=== PATIENT | female | born 1965 | race Caucasian/White ===

== ENCOUNTER → 2018-06-22 | Outpatient (CLI) | payer MEDICARE | LOC: SLEEP 19:53 | PROVIDERS: ATTEND Internal Medicine | DX: G47.33 Obstructive sleep apnea (adult) (pediatric) (principal) | CPT/HCPCS: 95810 ==

== ENCOUNTER → 2018-08-08 | Outpatient (CLI) | payer MEDICARE ==
--- NOTE | 2018-08-10 14:44 | Polysomnography ---
DATE OF STUDY: HISTORY OF PRESENT ILLNESS: Patient reports snoring and intermittent apnea at night as well as insomnia. The patient has excessive daytime fatigue and sleepiness. INTERPRETATION: The patient came to the laboratory for a second night study with CPAP titration. The patient slept for 345.5 minutes out of 360 minutes. The sleep efficiency was 81%. The sleep onset latency was 13 minutes. The latency to REM was 139.5 minutes. Patient spent 35 minutes in REM sleep, which was 12.5% of the night. The program checker desensitized the patient to CPAP using a small size [employer] nasal mask. The patient initiated CPAP at 4 cm of water pressure and gradually increased the CPAP to 10 cm of water pressure. There were still nocturnal events, and the program checker switched the patient to BiPAP. BiPAP was adjusted to 12/8. At this setting the nocturnal events were successfully eliminated. IMPRESSION: Successful treatment of obstructive sleep apnea with bilateral positive airway pressure. RECOMMENDATIONS 1. BiPAP at 12/8 with a heated humidifier. 2. Small size [employer] nasal mask. 3. Avoid alcohol or sedatives prior to retiring at night. 4. Achieve and maintain an ideal body weight. 5. Follow up in 3 months to ensure efficacy in compliance with CPAP. Job#: [id number] CLAUDETTE
== END ==
LOC: SLEEP 19:45
PROVIDERS: ATTEND Internal Medicine
DX: G47.33 Obstructive sleep apnea (adult) (pediatric) (principal)
CPT/HCPCS: 95811

== ENCOUNTER 2022-05-09 20:11 | Emergency (ER) | payer MEDICARE ==
[~2022-05-09] VITALS: Ht 152.4 cm; Wt 108.9 kg
[2022-05-09] MEDS ORDERED: ALBUTEROL/IPRATROPIUM 3 ML NEB NEB ONE (21:45)
[2022-05-09] MEDS ORDERED: METHYLPREDNISOLONE SOD SUCC 125 MG/2ML VIAL IV ONE (21:45)
[2022-05-09] MEDS ORDERED: ALBUTEROL/IPRATROPIUM 3 ML NEB ONE (22:13)
[2022-05-09] MEDS ORDERED: METHYLPREDNISOLONE SOD SUCC 125 MG/2ML VIAL ONE (22:13)
[2022-05-09] MEDS ORDERED: SODIUM CHLORIDE 0.9% 500ML 500 ML ONE (22:14)
[2022-05-09] MEDS ORDERED: LEVOFLOXACIN 750MG/D5W 150ML 150 ML IV ONE ×2 (23:15→23:24)
[2022-05-09] MEDS ORDERED: IPRAT-ALBUT 0.5-3 ML INH (23:52)
[2022-05-09] MEDS ORDERED: LEVOFLOXACIN750 MG PO (23:55)
[2022-05-09] MEDS ORDERED: PREDNISONE20 MG PO (23:56)
== END 2022-05-10 00:26 | disposition home or self-care (01) ==
LOC: FSED 20:48
DX: J44.1 Chronic obstructive pulmonary disease with (acute) exacerbation (principal); J18.9 Pneumonia, unspecified organism; R09.02 Hypoxemia; E11.65 Type 2 diabetes mellitus with hyperglycemia; I10 Essential (primary) hypertension; E78.5 Hyperlipidemia, unspecified; F41.9 Anxiety disorder, unspecified; F31.89 Other bipolar disorder; Z87.891 Personal history of nicotine dependence; Z79.899 Other long term (current) drug therapy
CPT/HCPCS: 71046; 80053; 82553; 83880; 84484; 85025; 85379; 99284; J0456; J2930; J7040

== ENCOUNTER 2022-09-13 04:19 | Inpatient (IN) | payer MEDICARE ==
[~2022-09-13] VITALS: Ht 152.4 cm; Wt 101.3 kg
[2022-09-13] VITALS (26 sets, daily range): BP systolic 99–171; BP diastolic 55–83
[~2022-09-13 04:19] MED LIST: ABILIFY10 MG PO; ALIVE WOMEN'S1 EAC2; AUGMENTIN 500-1 EACH PO; BUPROPION XL150 MG PO; CELEBREX200 MG PO; COMBIVENT RESPIM4 GM IH; CRESTOR10 MG PO; DOXYCYCLINE HY100 MG PO; ESOMEPRAZOLE MA40 MG; FUROSEMIDE40 MG PO; HUMALOG MI100 UNIT/3 SQ; INVOKANA300 MG; IPRAT-ALBUT 0.5-3 ML INH; LEVALBUTER1.25 MG/3 INH; LEVOFLOXACIN500 MG PO; LEVOFLOXACIN750 MG PO; LISINOPRIL-HCT1 EAC1; LYRICA150 MG PO; METFORMIN HCL500 M2 PO; METOPROLOL TART25 MG PO; OZEMPIC1 MG/0.75 SC; PREDNISONE20 MG PO; PROAIR HFA INH8.5 GM; SYMBICORT 16010.2 GM INH; TRESIBA FL100 UNIT/1; VASCEPA1 GM; VITAMIN B-121000 MC1 PO; VITAMIN D325 MCG
[2022-09-13 04:30] LABS: BASOPHILS % 0.4 % (0.0-1.0); EOSINOPHILS # (AUTO) 0.2 (0.0-0.4); EOSINOPHILS % 1.9 % (0.0-6.0); HEMATOCRIT 43.1 % (34.2-44.1); HEMOGLOBIN 12.7 g/dL (12.0-16.0); LYMPHOCYTES # (AUTO) 0.8 (1.0-3.2); LYMPHOCYTES % 8.1 % (18.0-39.1); MEAN CORPUSCULAR HEMOGLOBIN 29.6 pg (28-32); MEAN CORPUSCULAR HGB CONC 29.5 g/dL (31-35); MEAN CORPUSCULAR VOLUME 100.5 fL (81-99); MONOCYTES # (AUTO) 0.6 (0.2-0.8); MONOCYTES % 5.5 % (4.4-11.3); NEUTROPHILS # (AUTO) 8.5 (2.1-6.9); NEUTROPHILS % 83.2 % (38.7-80.0); PLATELET COUNT 144 x10e3/uL (140-360); RED BLOOD COUNT 4.29 x10e6/uL (3.6-5.1); RED CELL DISTRIBUTION WIDTH 19.9 % (11.7-14.4)
[2022-09-13] MEDS ORDERED: SODIUM CHLORIDE 0.9% 250ML 250 ML ONE (04:41)
[2022-09-13] MEDS ORDERED: CEFTRIAXONE 1 GM VIAL ONE (04:41)
[2022-09-13] MEDS ORDERED: DEXTROSE 50% SYRINGE 50 ML IV PRN (04:45)
[2022-09-13 04:50] LABS: ALANINE AMINOTRANSFERASE 19 IU/L (0-55); ALBUMIN 4.1 g/dL (3.5-5.0); ALBUMIN/GLOBULIN RATIO 1.4 (0.8-2.0); ALKALINE PHOSPHATASE 54 IU/L (40-150); ANION GAP 20.6 mmol/L (8-16); BLOOD UREA NITROGEN 19 mg/dL (7-26); BUN/CREATININE RATIO 20 (6-25); CALCIUM 8.5 mg/dL (8.4-10.2); CARBON DIOXIDE 24 mmol/L (22-29); CHLORIDE 105 mmol/L (98-107); CREATINE KINASE 71 IU/L (29-168); CREATININE, SERUM 0.96 mg/dL (0.57-1.11); GLUCOSE 320 mg/dL (74-118); POTASSIUM 4.6 mmol/L (3.5-5.1); SODIUM 145 mmol/L (136-145)
[2022-09-13 05:03] LABS: ABG HCO3 28 mmol/L (22-26); ABG PCO2 60 mmHg (35-45); ABG PH 7.27 (7.35-7.45); ABG PO2 92 mmHg (80-105)
[2022-09-13 05:04] LABS: ABG TCO2 30
[2022-09-13] MEDS: ALBUTEROL/IPRATROPIUM 3 ML NEB NEB SCH ×5 (07:00→23:00)
[2022-09-13] MEDS: INSULIN REGULAR, HUMAN 100 UNIT/1 ML SQ SCH ×4 (07:30→21:07)
[2022-09-13] MEDS: METHYLPREDNISOLONE SOD SUCC 40 MG/ML VIAL 1ML IV SCH ×2 (08:10→11:47)
[2022-09-13] MEDS ORDERED: ALBUTEROL SULFATE HFA 8GM INHALATION AEROSOL INH PRN (12:30)
[2022-09-13] MEDS ORDERED: ALBUTEROL/IPRATROPIUM 3 ML NEB INH PRN (12:30)
[2022-09-13] MEDS: FUROSEMIDE INJ 10 MG/ML 4 ML VIAL IV SCH (13:23)
[2022-09-13] MEDS ORDERED: SODIUM CHLORIDE 0.9% 500ML 500 ML ONE (13:39)
[2022-09-13 15:44] LABS: CREATINE KINASE MB 1.4 ng/mL (0-5.0)
[2022-09-13] MEDS: METOPROLOL TARTRATE 25 MG TAB PO SCH (17:44)
[2022-09-13] MEDS: BUDESONIDE/FORMOTEROL 160/4.5MCG INHALER INH SCH (19:05)
[2022-09-13] MEDS ORDERED: INSULIN GLARGINE 100 UNITS/ML VIAL SQ SCH (21:00)
[2022-09-13] MEDS ORDERED: AZITHROMYCIN 250 MG TAB PO SCH (21:00)
[2022-09-13] MEDS: SIMVASTATIN 20 MG TAB PO SCH (21:05)
[2022-09-13] MEDS: HEPARIN SOD (PORCINE) 5,000 UNIT/ML VIAL SC SCH (21:08)
[2022-09-14] VITALS (12 sets, daily range): BP systolic 106–151; BP diastolic 52–87
[2022-09-14] MEDS: ALBUTEROL/IPRATROPIUM 3 ML NEB NEB SCH ×6 (02:45→23:25)
[2022-09-14 07:35] LABS: HEMATOCRIT 37.3 % (34.2-44.1); LYMPHOCYTES # (AUTO) 0.6 (1.0-3.2); LYMPHOCYTES % 8.4 % (18.0-39.1); MEAN CORPUSCULAR HEMOGLOBIN 29.3 pg (28-32); MEAN CORPUSCULAR HGB CONC 29.5 g/dL (31-35); MEAN CORPUSCULAR VOLUME 99.2 fL (81-99); MONOCYTES # (AUTO) 0.5 (0.2-0.8); MONOCYTES % 7.8 % (4.4-11.3); NEUTROPHILS # (AUTO) 5.4 (2.1-6.9); NEUTROPHILS % 83.2 % (38.7-80.0); PLATELET COUNT 126 x10e3/uL (140-360); RED BLOOD COUNT 3.76 x10e6/uL (3.6-5.1); RED CELL DISTRIBUTION WIDTH 19.2 % (11.7-14.4)
[2022-09-14] MEDS: BUDESONIDE/FORMOTEROL 160/4.5MCG INHALER INH SCH ×2 (07:36→19:12)
[2022-09-14 07:45] LABS: ALBUMIN 3.8 g/dL (3.5-5.0); ALBUMIN/GLOBULIN RATIO 1.5 (0.8-2.0); ANION GAP 16.3 mmol/L (8-16); CREATININE, SERUM 0.73 mg/dL (0.57-1.11); POTASSIUM 4.3 mmol/L (3.5-5.1)
[2022-09-14 08:11] LABS: CREATINE KINASE MB 1.1 ng/mL (0-5.0)
[2022-09-14] MEDS: METOPROLOL TARTRATE 25 MG TAB PO SCH ×2 (08:12→16:33)
[2022-09-14] MEDS: INSULIN REGULAR, HUMAN 100 UNIT/1 ML SQ SCH ×4 (08:50→21:33)
[2022-09-14] MEDS: BUPROPION HCL 150 MG TABCR PO SCH (09:00)
[2022-09-14] MEDS: ARIPIPRAZOLE 20 MG TAB PO SCH (09:00)
[2022-09-14] MEDS: FUROSEMIDE INJ 10 MG/ML 4 ML VIAL IV SCH ×2 (09:01→16:32)
[2022-09-14] MEDS: HEPARIN SOD (PORCINE) 5,000 UNIT/ML VIAL SC SCH ×2 (09:03→21:32)
[2022-09-14] MEDS: METHYLPREDNISOLONE SOD SUCC 125 MG/2ML VIAL IV SCH ×2 (13:11→21:36)
[2022-09-14] MEDS ORDERED: SODIUM CHLORIDE 0.9% 250ML 250 ML ONE (16:38)
[2022-09-14] MEDS ORDERED: INSULIN GLARGINE 100 UNITS/ML VIAL SQ SCH (21:00)
[2022-09-14] MEDS: INSULIN GLARGINE 100 UNITS/ML VIAL SQ SCH (21:35)
[2022-09-14] MEDS: SIMVASTATIN 20 MG TAB PO SCH (21:36)
[2022-09-15] VITALS (11 sets, daily range): BP systolic 138–174; BP diastolic 54–75
[2022-09-15] MEDS: ALBUTEROL/IPRATROPIUM 3 ML NEB NEB SCH ×6 (02:42→22:55)
[2022-09-15 06:30] LABS: HEMATOCRIT 37.3 % (34.2-44.1); HEMOGLOBIN 11.3 g/dL (12.0-16.0); LYMPHOCYTES # (AUTO) 0.4 (1.0-3.2); LYMPHOCYTES % 6.7 % (18.0-39.1); MEAN CORPUSCULAR HEMOGLOBIN 29.1 pg (28-32); MEAN CORPUSCULAR HGB CONC 30.3 g/dL (31-35); MEAN CORPUSCULAR VOLUME 96.1 fL (81-99); MONOCYTES # (AUTO) 0.2 (0.2-0.8); MONOCYTES % 2.9 % (4.4-11.3); NEUTROPHILS # (AUTO) 4.7 (2.1-6.9); PLATELET COUNT 128 x10e3/uL (140-360); RED BLOOD COUNT 3.88 x10e6/uL (3.6-5.1); RED CELL DISTRIBUTION WIDTH 17.7 % (11.7-14.4)
[2022-09-15 07:05] LABS: ALBUMIN 3.8 g/dL (3.5-5.0); ALBUMIN/GLOBULIN RATIO 1.4 (0.8-2.0); ANION GAP 15.4 mmol/L (8-16); CALCIUM 9.7 mg/dL (8.4-10.2); CREATININE, SERUM 0.73 mg/dL (0.57-1.11); POTASSIUM 4.4 mmol/L (3.5-5.1)
[2022-09-15] MEDS: BUDESONIDE/FORMOTEROL 160/4.5MCG INHALER INH SCH ×2 (07:15→19:30)
[2022-09-15] MEDS: INSULIN REGULAR, HUMAN 100 UNIT/1 ML SQ SCH ×4 (08:59→20:34)
[2022-09-15] MEDS: BUPROPION HCL 150 MG TABCR PO SCH (09:00)
[2022-09-15] MEDS: ARIPIPRAZOLE 20 MG TAB PO SCH (09:00)
[2022-09-15] MEDS: METOPROLOL TARTRATE 25 MG TAB PO SCH (09:00)
[2022-09-15] MEDS: METHYLPREDNISOLONE SOD SUCC 125 MG/2ML VIAL IV SCH ×2 (09:00→20:29)
[2022-09-15] MEDS: FUROSEMIDE INJ 10 MG/ML 4 ML VIAL IV SCH ×2 (09:00→16:42)
[2022-09-15] MEDS: HEPARIN SOD (PORCINE) 5,000 UNIT/ML VIAL SC SCH ×2 (09:04→20:32)
[2022-09-15] MEDS: SIMVASTATIN 20 MG TAB PO SCH (20:31)
[2022-09-15] MEDS: INSULIN GLARGINE 100 UNITS/ML VIAL SQ SCH (20:35)
[2022-09-15] MEDS ORDERED: ONDANSETRON HCL INJ 2MG/ML 2ML 2 MG/ML VIAL IV PRN (21:45)
[2022-09-15] MEDS ORDERED: ACETAMINOPHEN 325 MG TAB PO PRN (21:45)
[2022-09-15] MEDS ORDERED: CLONIDINE HCL 0.1 MG TAB PO PRN (21:45)
[2022-09-16] VITALS (7 sets, daily range): BP systolic 124–151; BP diastolic 62–67
[2022-09-16] MEDS: ALBUTEROL/IPRATROPIUM 3 ML NEB NEB SCH ×3 (02:05→11:00)
[2022-09-16 06:42] LABS: EOSINOPHILS % 0.2 % (0.0-6.0); HEMATOCRIT 38.9 % (34.2-44.1); HEMOGLOBIN 11.8 g/dL (12.0-16.0); LYMPHOCYTES # (AUTO) 0.4 (1.0-3.2); LYMPHOCYTES % 7.9 % (18.0-39.1); MEAN CORPUSCULAR HGB CONC 30.3 g/dL (31-35); MEAN CORPUSCULAR VOLUME 95.6 fL (81-99); MONOCYTES # (AUTO) 0.3 (0.2-0.8); MONOCYTES % 4.9 % (4.4-11.3); NEUTROPHILS # (AUTO) 4.6 (2.1-6.9); NEUTROPHILS % 86.6 % (38.7-80.0); PLATELET COUNT 107 x10e3/uL (140-360); RED BLOOD COUNT 4.07 x10e6/uL (3.6-5.1); RED CELL DISTRIBUTION WIDTH 17.1 % (11.7-14.4)
[2022-09-16 07:00] LABS: CALCIUM 9.3 mg/dL (8.4-10.2); CREATININE, SERUM 0.77 mg/dL (0.57-1.11)
[2022-09-16] MEDS: INSULIN REGULAR, HUMAN 100 UNIT/1 ML SQ SCH (08:54)
[2022-09-16] MEDS: HEPARIN SOD (PORCINE) 5,000 UNIT/ML VIAL SC SCH (08:54)
[2022-09-16] MEDS: BUPROPION HCL 150 MG TABCR PO SCH (08:55)
[2022-09-16] MEDS: ARIPIPRAZOLE 20 MG TAB PO SCH (08:56)
[2022-09-16] MEDS: FUROSEMIDE INJ 10 MG/ML 4 ML VIAL IV SCH (08:57)
[2022-09-16] MEDS ORDERED: PREDNISONE 20 MG TAB PO SCH (09:00)
[2022-09-16] MEDS ORDERED: CANAGLIFLOZIN 300 MG TABLET PO SCH (09:00)
[2022-09-16] MEDS ORDERED: LISINOPRIL 20 MG TAB PO SCH ×2 (09:00)
[2022-09-16] MEDS: BUDESONIDE/FORMOTEROL 160/4.5MCG INHALER INH SCH (11:39)
[2022-09-16] MEDS ORDERED: PREDNISONE20 MG PO (11:49)
== END 2022-09-16 12:45 | disposition home or self-care (01) | DRG 190 ==
LOC: ER 04:32 → MERGE 04:39 → ERHOLD 04:39 → UNMERGE 04:39 → ICU 10:20
PROVIDERS: ADMIT Internal Medicine; ATTEND Internal Medicine
PROC: 5A09357 Assistance with Respiratory Ventilation, Less than 24 Consecutive Hours, Continuous Positive Airway Pressure (ICD-10-PCS; principal; 2022-09-13)
DX: J44.0 Chronic obstructive pulmonary disease with (acute) lower respiratory infection (principal); J18.9 Pneumonia, unspecified organism; J96.20 Acute and chronic respiratory failure, unspecified whether with hypoxia or hypercapnia; E87.20 Acidosis, unspecified; C83.03 Small cell B-cell lymphoma, intra-abdominal lymph nodes; J44.1 Chronic obstructive pulmonary disease with (acute) exacerbation; I50.9 Heart failure, unspecified; I11.0 Hypertensive heart disease with heart failure; E11.9 Type 2 diabetes mellitus without complications; Z85.3 Personal history of malignant neoplasm of breast; Z99.81 Dependence on supplemental oxygen; Z87.891 Personal history of nicotine dependence; Z88.0 Allergy status to penicillin; D64.9 Anemia, unspecified; K21.9 Gastro-esophageal reflux disease without esophagitis; E78.00 Pure hypercholesterolemia, unspecified; F32.A Depression, unspecified; Z20.822 Contact with and (suspected) exposure to COVID-19; Z79.4 Long term (current) use of insulin
CPT/HCPCS: 36415; 71045; 80048; 80053; 82550; 82553; 82805; 82948; 83605; 83880; 84484; 85025; 87040; 87400; 93005; 94660; 94664; 94760; 94799; 96372; 99251; 99284; J0456; J0696; J1644; J1815; J1817; J1940; J2920; J2930; J7040; J7050; J7512

== ENCOUNTER 2022-10-25 14:09 | Inpatient (IN) | payer MEDICARE ==
[~2022-10-25] VITALS: Ht 152.4 cm; Wt 97.5 kg
[2022-10-25] MEDS ORDERED: ONDANSETRON HCL INJ 2MG/ML 2ML 2 MG/ML VIAL IV STA (15:04)
[2022-10-25 15:12] LABS: BASOPHILS % 0.3 % (0.0-1.0); EOSINOPHILS % 0.3 % (0.0-6.0); HEMATOCRIT 41.3 % (34.2-44.1); HEMOGLOBIN 12.3 g/dL (12.0-16.0); LYMPHOCYTES # (AUTO) 0.2 (1.0-3.2); LYMPHOCYTES % 2.5 % (18.0-39.1); MEAN CORPUSCULAR HEMOGLOBIN 28.8 pg (28-32); MEAN CORPUSCULAR HGB CONC 29.8 g/dL (31-35); MEAN CORPUSCULAR VOLUME 96.7 fL (81-99); MONOCYTES # (AUTO) 0.4 (0.2-0.8); MONOCYTES % 5.7 % (4.4-11.3); NEUTROPHILS # (AUTO) 6.4 (2.1-6.9); NEUTROPHILS % 90.5 % (38.7-80.0); PLATELET COUNT 147 x10e3/uL (140-360); RED BLOOD COUNT 4.27 x10e6/uL (3.6-5.1); RED CELL DISTRIBUTION WIDTH 16.4 % (11.7-14.4)
[2022-10-25] MEDS ORDERED: ASPIRIN 81 MG CHEW TAB PO ONE ×2 (15:15→17:00)
[2022-10-25] MEDS ORDERED: SODIUM CHLORIDE FLUSH 10 ML SYR IV PRN (15:15)
[2022-10-25 15:31] LABS: ALBUMIN 4.2 g/dL (3.5-5.0); ALBUMIN/GLOBULIN RATIO 1.8 (0.8-2.0); ANION GAP 17.9 mmol/L (8-16); CALCIUM 9.5 mg/dL (8.4-10.2); CREATININE, SERUM 0.82 mg/dL (0.57-1.11); POTASSIUM 3.9 mmol/L (3.5-5.1)
[2022-10-25] MEDS ORDERED: ONDANSETRON HCL INJ 2MG/ML 2ML 2 MG/ML VIAL IV PRN (17:00)
[2022-10-25] MEDS ORDERED: SODIUM CHLORIDE FLUSH 10 ML SYR INJ PRN (17:00)
[2022-10-25 17:12] LABS: CREATINE KINASE MB 1.5 ng/mL (0-5.0)
[2022-10-25] MEDS ORDERED: DEXTROSE 50% SYRINGE 50 ML IV PRN (17:15)
[2022-10-25] MEDS: FUROSEMIDE INJ 10 MG/ML 4 ML VIAL IV SCH (17:15)
[2022-10-25] MEDS ORDERED: CLONIDINE HCL 0.1 MG TAB PO PRN (17:15)
[2022-10-25] MEDS ORDERED: SODIUM CHLORIDE 0.9% 250ML 250 ML ONE (18:24)
[2022-10-25] MEDS: ALBUTEROL SULFATE HFA 8GM INHALATION AEROSOL INH SCH (19:00)
[2022-10-25] MEDS: INSULIN REGULAR, HUMAN 100 UNIT/1 ML SQ SCH (21:00)
[2022-10-25 23:55] LABS: CREATINE KINASE MB 0.6 ng/mL (0-5.0)
[2022-10-26] VITALS (8 sets, daily range): BP systolic 108–142; BP diastolic 55–76
[2022-10-26] MEDS ORDERED: PROTONIX20 MG PO (03:05)
[2022-10-26] MEDS: LEVALBUTEROL HCL SOLN NEBU 1.25 MG/3 ML NEB INH SCH ×6 (03:50→22:45)
[2022-10-26] MEDS: ACETAMINOPHEN 325 MG TAB PO PRN ×2 (04:30→15:26)
[2022-10-26 06:15] LABS: BASOPHILS % 0.4 % (0.0-1.0); EOSINOPHILS % 0.1 % (0.0-6.0); HEMATOCRIT 38.1 % (34.2-44.1); HEMOGLOBIN 11.8 g/dL (12.0-16.0); LYMPHOCYTES # (AUTO) 0.4 (1.0-3.2); LYMPHOCYTES % 5.3 % (18.0-39.1); MEAN CORPUSCULAR VOLUME 93.6 fL (81-99); MONOCYTES # (AUTO) 0.5 (0.2-0.8); MONOCYTES % 7.1 % (4.4-11.3); NEUTROPHILS # (AUTO) 6.1 (2.1-6.9); NEUTROPHILS % 86.1 % (38.7-80.0); PLATELET COUNT 137 x10e3/uL (140-360); RED BLOOD COUNT 4.07 x10e6/uL (3.6-5.1)
[2022-10-26 06:43] LABS: ALBUMIN 4.1 g/dL (3.5-5.0); ALBUMIN/GLOBULIN RATIO 1.8 (0.8-2.0); CALCIUM 8.8 mg/dL (8.4-10.2); CREATININE, SERUM 0.82 mg/dL (0.57-1.11)
[2022-10-26] MEDS: ALBUTEROL SULFATE HFA 8GM INHALATION AEROSOL INH SCH ×4 (07:00→19:00)
[2022-10-26 07:27] LABS: CREATINE KINASE MB 0.3 ng/mL (0-5.0)
[2022-10-26] MEDS: FUROSEMIDE INJ 10 MG/ML 4 ML VIAL IV SCH ×2 (08:44→16:43)
[2022-10-26] MEDS: PREGABALIN 75 MG CAP PO SCH ×2 (08:45→16:43)
[2022-10-26] MEDS: CELECOXIB 200 MG CAP PO SCH ×2 (08:45→16:42)
[2022-10-26] MEDS: ARIPIPRAZOLE 20 MG TAB PO SCH (08:45)
[2022-10-26] MEDS: BUPROPION HCL 150 MG TABCR PO SCH (08:45)
[2022-10-26] MEDS: METFORMIN HCL 500 MG TAB CR PO SCH ×2 (08:46→16:42)
[2022-10-26] MEDS: INSULIN REGULAR, HUMAN 100 UNIT/1 ML SQ SCH ×4 (08:50→21:45)
[2022-10-26] MEDS ORDERED: AZITHROMYCIN 250 MG TAB PO SCH (09:00)
[2022-10-26] MEDS: BUDESONIDE/FORMOTEROL 160/4.5MCG INHALER INH SCH ×2 (10:48→19:00)
[2022-10-26] MEDS ORDERED: IOPAMIDOL 370 MG/ML 100 ML INFUS..BTL INJ ONE (11:51)
[2022-10-26] MEDS ORDERED: SODIUM CHLORIDE 0.9% 100 ML ONE (11:51)
[2022-10-26] MEDS: ENOXAPARIN SOD INJ 40 MG/0.4 ML SYR SC SCH (16:43)
[2022-10-26] MEDS: SIMVASTATIN 20 MG TAB PO SCH ×2 (21:44→21:47)
[2022-10-27] VITALS (9 sets, daily range): BP systolic 107–129; BP diastolic 56–76
[2022-10-27] MEDS: LEVALBUTEROL HCL SOLN NEBU 1.25 MG/3 ML NEB INH SCH ×6 (02:30→22:05)
[2022-10-27] MEDS: ACETAMINOPHEN 325 MG TAB PO PRN (06:41)
[2022-10-27] MEDS: ALBUTEROL SULFATE HFA 8GM INHALATION AEROSOL INH SCH ×4 (07:00→19:00)
[2022-10-27] MEDS: FUROSEMIDE INJ 10 MG/ML 4 ML VIAL IV SCH ×2 (08:16→16:05)
[2022-10-27] MEDS: BUPROPION HCL 150 MG TABCR PO SCH (08:17)
[2022-10-27] MEDS: PREGABALIN 75 MG CAP PO SCH ×2 (08:17→16:05)
[2022-10-27] MEDS: CELECOXIB 200 MG CAP PO SCH ×2 (08:17→16:05)
[2022-10-27] MEDS: ARIPIPRAZOLE 20 MG TAB PO SCH (08:17)
[2022-10-27] MEDS: METFORMIN HCL 500 MG TAB CR PO SCH ×2 (08:17→16:05)
[2022-10-27] MEDS: INSULIN REGULAR, HUMAN 100 UNIT/1 ML SQ SCH ×4 (08:20→21:45)
[2022-10-27] MEDS: BUDESONIDE/FORMOTEROL 160/4.5MCG INHALER INH SCH ×2 (10:54→19:00)
[2022-10-27] MEDS ORDERED: ONDANSETRON HCL 4 MG ORAL DISINTEGRATING TAB PO PRN (11:00)
[2022-10-27] MEDS: ENOXAPARIN SOD INJ 40 MG/0.4 ML SYR SC SCH (16:45)
[2022-10-27] MEDS: SIMVASTATIN 20 MG TAB PO SCH (21:41)
[2022-10-28] VITALS: BP 115/54
[2022-10-28] MEDS: LEVALBUTEROL HCL SOLN NEBU 1.25 MG/3 ML NEB INH SCH ×4 (02:35→14:20)
[2022-10-28] MEDS: ACETAMINOPHEN 325 MG TAB PO PRN (04:54)
[2022-10-28 06:45] LABS: BASOPHILS % 0.3 % (0.0-1.0); EOSINOPHILS # (AUTO) 0.1 (0.0-0.4); EOSINOPHILS % 1.6 % (0.0-6.0); HEMATOCRIT 35.1 % (34.2-44.1); HEMOGLOBIN 11.1 g/dL (12.0-16.0); LYMPHOCYTES # (AUTO) 0.4 (1.0-3.2); LYMPHOCYTES % 11.3 % (18.0-39.1); MEAN CORPUSCULAR HEMOGLOBIN 29.1 pg (28-32); MEAN CORPUSCULAR HGB CONC 31.6 g/dL (31-35); MEAN CORPUSCULAR VOLUME 91.9 fL (81-99); MONOCYTES # (AUTO) 0.3 (0.2-0.8); MONOCYTES % 7.9 % (4.4-11.3); NEUTROPHILS % 78.4 % (38.7-80.0); PLATELET COUNT 117 x10e3/uL (140-360); RED BLOOD COUNT 3.82 x10e6/uL (3.6-5.1); RED CELL DISTRIBUTION WIDTH 16.7 % (11.7-14.4)
[2022-10-28] MEDS: BUDESONIDE/FORMOTEROL 160/4.5MCG INHALER INH SCH (07:00)
[2022-10-28] MEDS: ALBUTEROL SULFATE HFA 8GM INHALATION AEROSOL INH SCH ×3 (07:00→14:32)
[2022-10-28 07:09] LABS: ALBUMIN 3.2 g/dL (3.5-5.0); ANION GAP 14.5 mmol/L (8-16); CALCIUM 8.5 mg/dL (8.4-10.2); CREATININE, SERUM 0.74 mg/dL (0.57-1.11); POTASSIUM 3.5 mmol/L (3.5-5.1)
[2022-10-28] MEDS: INSULIN REGULAR, HUMAN 100 UNIT/1 ML SQ SCH ×3 (08:00→16:30)
[2022-10-28] MEDS: FUROSEMIDE INJ 10 MG/ML 4 ML VIAL IV SCH ×2 (09:05→17:21)
[2022-10-28] MEDS: METFORMIN HCL 500 MG TAB CR PO SCH ×2 (09:06→17:21)
[2022-10-28] MEDS: ARIPIPRAZOLE 20 MG TAB PO SCH (09:06)
[2022-10-28] MEDS: CELECOXIB 200 MG CAP PO SCH ×2 (09:06→17:21)
[2022-10-28] MEDS: PREGABALIN 75 MG CAP PO SCH ×2 (09:06→17:21)
[2022-10-28] MEDS: BUPROPION HCL 150 MG TABCR PO SCH (09:06)
[2022-10-28 09:29] VITALS: BP 105/43
[2022-10-28 12:29] VITALS: BP 109/56
[2022-10-28 16:57] VITALS: BP 132/75
[2022-10-28] MEDS: ENOXAPARIN SOD INJ 40 MG/0.4 ML SYR SC SCH (17:21)
[2022-10-28] MEDS ORDERED: AZITHROMYCIN250 MG PO (19:03)
[2022-10-28] MEDS ORDERED: CEFDINIR300 MG PO (19:04)
[2022-10-28] MEDS ORDERED: PREDNISONE20 MG PO (19:04)
== END 2022-10-28 19:15 | disposition home or self-care (01) | DRG 193 ==
LOC: ER 14:57 → ERHOLD 16:49 → MED/SURG3 10-26 00:02 → OBSVTOIN 10-27 09:08
PROVIDERS: ADMIT Internal Medicine; ATTEND Internal Medicine
PROC: 5A09357 Assistance with Respiratory Ventilation, Less than 24 Consecutive Hours, Continuous Positive Airway Pressure (ICD-10-PCS; principal; 2022-10-26)
DX: J18.9 Pneumonia, unspecified organism (principal); I50.33 Acute on chronic diastolic (congestive) heart failure; J44.0 Chronic obstructive pulmonary disease with (acute) lower respiratory infection; C85.90 Non-Hodgkin lymphoma, unspecified, unspecified site; J44.1 Chronic obstructive pulmonary disease with (acute) exacerbation; I11.0 Hypertensive heart disease with heart failure; Z99.81 Dependence on supplemental oxygen; E11.9 Type 2 diabetes mellitus without complications; E78.5 Hyperlipidemia, unspecified; F41.9 Anxiety disorder, unspecified; F32.A Depression, unspecified; G47.33 Obstructive sleep apnea (adult) (pediatric); E66.9 Obesity, unspecified; R07.81 Pleurodynia; I35.0 Nonrheumatic aortic (valve) stenosis; Z88.0 Allergy status to penicillin; Z20.822 Contact with and (suspected) exposure to COVID-19; Z87.01 Personal history of pneumonia (recurrent)
CPT/HCPCS: 36415; 71045; 71260; 80053; 82550; 82553; 82948; 83880; 84484; 85025; 87040; 93005; 94799; 99284; G0378; J0456; J0696; J1650; J1817; J1940; J2405; J2543; J7050; Q9967

== ENCOUNTER 2022-12-12 09:33 | Emergency (ER) | payer MEDICARE ==
[~2022-12-12] VITALS: Ht 152.4 cm; Wt 103.4 kg
[~2022-12-12 09:33] MED LIST changes: +AZITHROMYCIN250 MG PO; +CEFDINIR300 MG PO; +PROTONIX20 MG PO
[2022-12-12 10:57] VITALS: BP 124/75
== END 2022-12-12 10:55 | disposition home or self-care (01) ==
LOC: ER 09:40
DX: J44.9 Chronic obstructive pulmonary disease, unspecified (principal); I10 Essential (primary) hypertension; E11.9 Type 2 diabetes mellitus without complications; I50.9 Heart failure, unspecified; E78.5 Hyperlipidemia, unspecified; F41.9 Anxiety disorder, unspecified; F31.9 Bipolar disorder, unspecified; R94.31 Abnormal electrocardiogram [ECG] [EKG]; Z85.72 Personal history of non-Hodgkin lymphomas
CPT/HCPCS: 93005; 94760; 99283

== ENCOUNTER 2022-12-13 17:28 | Inpatient (IN) | payer MEDICARE ==
[~2022-12-13] VITALS: Ht 152.4 cm; Wt 101.8 kg
[2022-12-13 18:58] LABS: BASOPHILS % 0.2 % (0.0-1.0); EOSINOPHILS % 0.5 % (0.0-6.0); HEMATOCRIT 41.4 % (34.2-44.1); LYMPHOCYTES # (AUTO) 0.4 (1.0-3.2); LYMPHOCYTES % 6.8 % (18.0-39.1); MEAN CORPUSCULAR HEMOGLOBIN 28.7 pg (28-32); MONOCYTES # (AUTO) 0.5 (0.2-0.8); MONOCYTES % 7.6 % (4.4-11.3); NEUTROPHILS # (AUTO) 5.4 (2.1-6.9); NEUTROPHILS % 83.8 % (38.7-80.0); PLATELET COUNT 148 x10e3/uL (140-360); RED BLOOD COUNT 4.18 x10e6/uL (3.6-5.1); RED CELL DISTRIBUTION WIDTH 18.9 % (11.7-14.4)
[2022-12-13 19:16] LABS: ALBUMIN 3.9 g/dL (3.5-5.0); ALBUMIN/GLOBULIN RATIO 1.3 (0.8-2.0); ANION GAP 18.2 mmol/L (8-16); CALCIUM 9.5 mg/dL (8.4-10.2); CREATININE, SERUM 0.98 mg/dL (0.57-1.11); POTASSIUM 4.2 mmol/L (3.5-5.1)
[2022-12-13 19:22] LABS: CREATINE KINASE MB 1.7 ng/mL (0-5.0)
[2022-12-13] MEDS: FUROSEMIDE INJ 10 MG/ML 4 ML VIAL IV SCH (20:30)
[2022-12-13] MEDS ORDERED: DEXTROSE 50% SYRINGE 50 ML IV PRN (20:30)
[2022-12-13] MEDS: INSULIN REGULAR, HUMAN 100 UNIT/1 ML SQ SCH (21:42)
[2022-12-13 22:19] VITALS: BP 132/47
[2022-12-13 22:30] VITALS: BP 132/47
[2022-12-14] VITALS (8 sets, daily range): BP systolic 120–146; BP diastolic 49–68
[2022-12-14] MEDS: ALBUTEROL/IPRATROPIUM 3 ML NEB NEB SCH ×6 (00:10→20:40)
[2022-12-14] MEDS ORDERED: ACETAMINOPHEN 325 MG TAB PO PRN (06:00)
[2022-12-14 06:55] LABS: CREATINE KINASE MB 1.5 ng/mL (0-5.0)
[2022-12-14] MEDS: INSULIN REGULAR, HUMAN 100 UNIT/1 ML SQ SCH ×4 (07:30→20:59)
[2022-12-14] MEDS: FUROSEMIDE INJ 10 MG/ML 4 ML VIAL IV SCH ×3 (09:54→20:47)
[2022-12-14] MEDS ORDERED: ONDANSETRON HCL INJ 2MG/ML 2ML 2 MG/ML VIAL IV PRN (11:30)
[2022-12-14] MEDS: CYANOCOBALAMIN 1,000 MCG TAB PO SCH (12:22)
[2022-12-14] MEDS: BUPROPION HCL 150 MG TABCR PO SCH (12:23)
[2022-12-14] MEDS: ARIPIPRAZOLE 20 MG TAB PO SCH (12:23)
[2022-12-14] MEDS: METHYLPREDNISOLONE SOD SUCC 40 MG/ML VIAL 1ML IV SCH (12:24)
[2022-12-14] MEDS: LISINOPRIL 20 MG TAB PO SCH (12:27)
[2022-12-14 12:36] LABS: CREATINE KINASE MB 1.5 ng/mL (0-5.0)
[2022-12-14] MEDS ORDERED: IPRATROPIUM/ALBUTEROL SULFATE 4 GM INH INH SCH (13:00)
[2022-12-14] MEDS ORDERED: ALBUTEROL SULFATE HFA 8GM INHALATION AEROSOL INH SCH (13:00)
[2022-12-14] MEDS ORDERED: LEVALBUTEROL HCL SOLN NEBU 1.25 MG/3 ML NEB INH SCH (14:00)
[2022-12-14] MEDS: CELECOXIB 200 MG CAP PO SCH (16:18)
[2022-12-14] MEDS: METFORMIN HCL 850 MG TAB PO SCH (16:18)
[2022-12-14] MEDS: PREGABALIN 75 MG CAP PO SCH (16:18)
[2022-12-14] MEDS ORDERED: ENOXAPARIN 30 MG/0.3 ML SYR SC SCH (17:00)
[2022-12-14] MEDS: BUDESONIDE/FORMOTEROL 160/4.5MCG INHALER INH SCH (20:40)
[2022-12-14] MEDS ORDERED: SIMVASTATIN 40 MG TAB PO SCH (21:00)
[2022-12-14] MEDS ORDERED: INSULIN GLARGINE 100 UNITS/ML VIAL SQ SCH (21:00)
[2022-12-14] MEDS ORDERED: CRESTOR 10MG PO SCH (21:00)
[2022-12-15 01:22] VITALS: BP 100/49
[2022-12-15] MEDS: ALBUTEROL/IPRATROPIUM 3 ML NEB NEB SCH ×3 (04:05→11:00)
[2022-12-15 05:42] VITALS: BP 131/59
[2022-12-15 05:50] LABS: BASOPHILS % 0.3 % (0.0-1.0); EOSINOPHILS % 0.2 % (0.0-6.0); HEMATOCRIT 37.6 % (34.2-44.1); HEMOGLOBIN 11.6 g/dL (12.0-16.0); LYMPHOCYTES # (AUTO) 0.5 (1.0-3.2); MEAN CORPUSCULAR HEMOGLOBIN 28.6 pg (28-32); MEAN CORPUSCULAR HGB CONC 30.9 g/dL (31-35); MEAN CORPUSCULAR VOLUME 92.6 fL (81-99); MONOCYTES # (AUTO) 0.4 (0.2-0.8); MONOCYTES % 6.2 % (4.4-11.3); NEUTROPHILS # (AUTO) 5.1 (2.1-6.9); NEUTROPHILS % 84.6 % (38.7-80.0); PLATELET COUNT 138 x10e3/uL (140-360); RED BLOOD COUNT 4.06 x10e6/uL (3.6-5.1); RED CELL DISTRIBUTION WIDTH 18.2 % (11.7-14.4)
[2022-12-15 06:13] LABS: ANION GAP 19.1 mmol/L (8-16); CALCIUM 9.9 mg/dL (8.4-10.2); CREATININE, SERUM 0.77 mg/dL (0.57-1.11); POTASSIUM 4.1 mmol/L (3.5-5.1)
[2022-12-15] MEDS: BUDESONIDE/FORMOTEROL 160/4.5MCG INHALER INH SCH (06:28)
[2022-12-15 08:18] VITALS: BP 109/63
[2022-12-15 09:00] VITALS: BP 109/63
[2022-12-15] MEDS ORDERED: INVOKANA 300 MG PO SCH (09:00)
[2022-12-15] MEDS: LISINOPRIL 20 MG TAB PO SCH (09:16)
[2022-12-15] MEDS: BUPROPION HCL 150 MG TABCR PO SCH (09:16)
[2022-12-15] MEDS: ARIPIPRAZOLE 20 MG TAB PO SCH (09:16)
[2022-12-15] MEDS: PREGABALIN 75 MG CAP PO SCH (09:17)
[2022-12-15] MEDS: CELECOXIB 200 MG CAP PO SCH (09:17)
[2022-12-15] MEDS: CYANOCOBALAMIN 1,000 MCG TAB PO SCH (09:17)
[2022-12-15] MEDS: FUROSEMIDE INJ 10 MG/ML 4 ML VIAL IV SCH ×2 (09:18→15:00)
[2022-12-15] MEDS: METFORMIN HCL 850 MG TAB PO SCH (09:18)
[2022-12-15] MEDS: METHYLPREDNISOLONE SOD SUCC 40 MG/ML VIAL 1ML IV SCH (09:18)
[2022-12-15] MEDS: INSULIN REGULAR, HUMAN 100 UNIT/1 ML SQ SCH ×2 (09:33→13:05)
[2022-12-15] MEDS ORDERED: FUROSEMIDE40 MG PO (11:08)
[2022-12-15 12:09] VITALS: BP 134/60
[2022-12-15] MEDS ORDERED: ONDANSETRON HCL 4 MG ORAL DISINTEGRATING TAB PO PRN (14:00)
== END 2022-12-15 15:06 | disposition home or self-care (01) | DRG 291 ==
LOC: ER 17:35 → ERHOLD 20:32 → OBSVTOIN 20:32 → MED/SURG3 21:54
PROVIDERS: ADMIT Internal Medicine; ATTEND Internal Medicine
DX: I11.0 Hypertensive heart disease with heart failure (principal); I50.31 Acute diastolic (congestive) heart failure; Z99.81 Dependence on supplemental oxygen; J44.9 Chronic obstructive pulmonary disease, unspecified; Z85.72 Personal history of non-Hodgkin lymphomas; F41.9 Anxiety disorder, unspecified; F32.A Depression, unspecified; E78.2 Mixed hyperlipidemia; E11.69 Type 2 diabetes mellitus with other specified complication; Z88.0 Allergy status to penicillin; Z88.8 Allergy status to other drugs, medicaments and biological substances
CPT/HCPCS: 36415; 71045; 80048; 80053; 82550; 82553; 82948; 83880; 84484; 85025; 93005; 94640; 94664; 94799; 96372; 99284; J1650; J1815; J1817; J1940; J2920

== ENCOUNTER 2025-02-26 07:29 | Emergency (ER) | payer MEDICARE ==
[~2025-02-26] VITALS: Ht 152.4 cm; Wt 98.2 kg
[~2025-02-26 07:29] MED LIST changes: +BUMETANIDE2 MG PO; +IPRAT-ALBUT 0.5-3 ML NEB; +VENTOLIN HFA18 GM INH
[2025-02-26] MEDS ORDERED: ONDANSETRON HCL INJ 2MG/ML 2ML 2 MG/ML VIAL ONE (09:15)
[2025-02-26] MEDS: FAMOTIDINE 20 MG/2 ML VIAL IV STA (09:16)
[2025-02-26] MEDS: LACTATED RINGER S IV ONE (09:16)
[2025-02-26] MEDS: Morphine 4mg INJECTION 4 MG/ML INJ IV ONE (09:17)
[2025-02-26] MEDS: ONDANSETRON HCL INJ 2MG/ML 2ML 2 MG/ML VIAL IV STA (09:17)
[2025-02-26] MEDS ORDERED: IOPAMIDOL 370 MG/ML 100 ML INFUS..BTL INJ ONE (09:51)
[2025-02-26 10:31] LABS: MAGNESIUM 2.2 MG/DL (1.3-2.1)
[2025-02-26] MEDS ORDERED: KETOROLAC TROME10 MG PO (11:44)
[2025-02-26] MEDS ORDERED: METRONIDAZOLE500 MG PO (11:46)
[2025-02-26] MEDS ORDERED: CIPRO500 MG PO (11:46)
[2025-02-26] MEDS ORDERED: ONDANSETRON ODT8 MG PO (11:48)
[2025-02-26] MEDS: METRONIDAZOLE 500MG/NS 100ML 100 ML IV ONE (11:55)
[2025-02-26] MEDS: Morphine 4mg INJECTION 4 MG/ML INJ IV PRN (12:46)
[2025-02-26] MEDS: CIPROFLOXACIN 400 MG/D5W 200ML 200 ML IV ONE (12:46)
[2025-02-26 13:43] VITALS: PULSE 66; RESP 18; TEMP 97.7; O2SAT 94
== END 2025-02-26 13:49 | disposition home or self-care (01) ==
LOC: FSED 07:32
DX: R11.2 Nausea with vomiting, unspecified (principal); K52.9 Noninfective gastroenteritis and colitis, unspecified; R10.12 Left upper quadrant pain; R10.32 Left lower quadrant pain
CPT/HCPCS: 36415; 71046; 74177; 80053; 81003; 83690; 83735; 83880; 84484; 85025; 85610; 93005; 96374; 96375; 96376; 99284; J0744; J2270; J2405; Q9967

== ENCOUNTER 2025-03-04 07:55 | Inpatient (IN) | payer MEDICARE ==
[2025-03-04] VITALS (12 sets, daily range): BP systolic 104–115; BP diastolic 50–90; PULSE 82–101; RESP 17–22; TEMP 98.5–100; O2SAT 92–100
[~2025-03-04] VITALS: Ht 152.4 cm; Wt 98.1 kg
[~2025-03-04 07:55] MED LIST changes: +CIPRO500 MG PO; +KETOROLAC TROME10 MG PO; +METRONIDAZOLE500 MG PO; +ONDANSETRON ODT8 MG PO
[2025-03-04] MEDS ORDERED: NASACORT16.9 ML (09:57)
[2025-03-04] MEDS ORDERED: MECLIZINE HCL12.5 MG PO (09:57)
[2025-03-04] MEDS: SODIUM CHLORIDE 0.9% 500ML 250 ML IV STA (10:09)
[2025-03-04] MEDS: FAMOTIDINE 20 MG/2 ML VIAL IV SCH (10:42)
[2025-03-04] MEDS ORDERED: DIPHENHYDRAMINE HCL INJ 50 MG/ML VIAL IV PRN (10:45)
[2025-03-04] MEDS ORDERED: DEXTROSE 50% SYRINGE 50 ML IV PRN ×2 (10:45→12:15)
[2025-03-04] MEDS ORDERED: LACTATED RINGER'S 1,000 ML IV SCH (10:45)
[2025-03-04] MEDS: INSULIN REGULAR, HUMAN 100 UNIT/1 ML IV ONE (10:55)
[2025-03-04] MEDS ORDERED: SIMETHICONE 80 MG CHEW PO PRN (12:15)
[2025-03-04] MEDS ORDERED: DOCUSATE SODIUM 100 MG CAP PO PRN (12:15)
[2025-03-04] MEDS ORDERED: POTASSIUM CHLORIDE 20 MEQ TAB CR PO PRN (12:15)
[2025-03-04] MEDS ORDERED: HYDRALAZINE HCL 20 MG/ML VIAL IV PRN (12:15)
[2025-03-04] MEDS ORDERED: LIDOCAINE 4% PATCH TP PRN (12:15)
[2025-03-04] MEDS ORDERED: DIPHENHYDRAMINE HCL 25 MG CAP PO PRN (12:15)
[2025-03-04] MEDS ORDERED: ALBUTEROL/IPRATROPIUM 3 ML NEB NEB PRN (12:15)
[2025-03-04] MEDS: INSULIN LISPRO 100 UNIT/1 ML 3ML VIAL SQ ONE (14:07)
[2025-03-04 14:45] LABS: ABG HCO3 27 mmol/L (22-26); ABG PCO2 41 mmHg (35-45); ABG PH 7.42 (7.35-7.45); ABG PO2 78 mmHg (80-105)
[2025-03-04 14:46] LABS: ABG TCO2 28
[2025-03-04] MEDS: ALBUTEROL/IPRATROPIUM 3 ML NEB NEB SCH (14:48)
[2025-03-04] MEDS ORDERED: IOPAMIDOL 370 MG/ML 100 ML INFUS..BTL INJ ONE (14:50)
[2025-03-04 15:02] LABS: ALBUMIN 2.8 g/dL (3.5-5.0); ALBUMIN/GLOBULIN RATIO 0.8 (0.8-2.0); ANION GAP 21.3 mmol/L (8-16); BILIRUBIN,TOTAL 0.5 mg/dL (0.2-1.2); CALCIUM 8.9 mg/dL (8.4-10.2); CREATININE, SERUM 1.8 mg/dL (0.57-1.11); POTASSIUM 4.3 mmol/L (3.5-5.1); TOTAL PROTEIN 6.4 g/dL (6.5-8.1)
[2025-03-04 15:09] LABS: TROPONIN I 0.011 ng/mL (0-0.300)
[2025-03-04] MEDS: METRONIDAZOLE 500MG/NS 100ML 100 ML IV SCH (16:17)
[2025-03-04] MEDS: SODIUM CHLORIDE 0.9% 1000ML 1,000 ML IV SCH (16:17)
[2025-03-04] MEDS: INSULIN REGULAR, HUMAN 100 UNIT/1 ML SQ SCH (16:26)
[2025-03-04] MEDS ORDERED: TRAZODONE HCL50 MG PO (17:55)
[2025-03-04] MEDS: ACETAMINOPHEN 325 MG TAB PO PRN (20:27)
[2025-03-04] MEDS ORDERED: ZOLPIDEM TARTRATE 5 MG TAB PO PRN (21:00)
[2025-03-04] MEDS: INSULIN GLARGINE 100 UNITS/ML VIAL SQ SCH (22:20)
[2025-03-05] VITALS (11 sets, daily range): BP systolic 102–163; BP diastolic 49–105; PULSE 77–96; RESP 16–20; TEMP 97.3–98.9; O2SAT 92–100
[2025-03-05 06:24] LABS: BASOPHILS % 1.8 % (0.0-1.0); EOSINOPHILS % 0.6 % (0.0-6.0); HEMATOCRIT 35.9 % (34.2-44.1); HEMOGLOBIN 11.4 g/dL (12.0-16.0); LYMPHOCYTES # (AUTO) 0.2 (1.0-3.2); LYMPHOCYTES % 9.5 % (18.0-39.1); MEAN CORPUSCULAR HGB CONC 31.8 g/dL (31-35); MEAN CORPUSCULAR VOLUME 85.1 fL (81-99); MONOCYTES # (AUTO) 0.9 (0.2-0.8); NEUTROPHILS # (AUTO) 0.6 (2.1-6.9); NEUTROPHILS % 34.5 % (38.7-80.0); PLATELET COUNT 147 x10e3/uL (140-360); RED BLOOD COUNT 4.22 x10e6/uL (3.6-5.1); RED CELL DISTRIBUTION WIDTH 16.5 % (11.7-14.4)
[2025-03-05 06:28] LABS: WHITE BLOOD COUNT 1.68 x10e3/uL (4.8-10.8)
[2025-03-05 06:42] LABS: ANION GAP 19.7 mmol/L (8-16); CREATININE, SERUM 1.24 mg/dL (0.57-1.11); POTASSIUM 3.7 mmol/L (3.5-5.1)
[2025-03-05 07:05] LABS: MAGNESIUM 2.4 MG/DL (1.3-2.1)
[2025-03-05 07:13] LABS: TROPONIN I 0.004 ng/mL (0-0.300)
[2025-03-05 07:22] LABS: THYROID STIMULATING HORMONE 0.165 uIU/mL (0.350-4.940)
[2025-03-05 07:25] LABS: CHOL/HDL RATIO 8.3 (3.0-3.6)
[2025-03-05] MEDS ORDERED: PANTOPRAZOLE SOD 40 MG TABEC PO SCH (07:30)
[2025-03-05] MEDS: ASPIRIN 81 MG ENTERIC COATED PO SCH (08:46)
[2025-03-05] MEDS: ENOXAPARIN 30 MG/0.3 ML SYR SC SCH (08:47)
[2025-03-05] MEDS: DOXYCYCLINE HYCLATE TABLET 100 MG TAB PO SCH (11:47)
[2025-03-05 11:50] LABS: LYMPHOCYTES % (MANUAL) 29 % (19-48); METAMYELOCYTES % (MANUAL) 4 % (0-0); MONOCYTES % (MANUAL) 14 % (3.4-9.0); MYELOCYTES % (MANUAL) 5 % (0-0); NEUTROPHILS % (MANUAL) 48 % (40-74); PLATELET ESTIMATE SLIGHTLY DECREASED; PLATELET MORPHOLOGY COMMENT NORMAL; RBC MORPHOLOGY COMMENT NORMAL
[2025-03-05] MEDS: SUMATRIPTAN SUCCINATE 6 MG/0.5 ML VIAL SC ONE (15:39)
[2025-03-05] MEDS: INSULIN GLARGINE 100 UNITS/ML VIAL SQ SCH (21:42)
[2025-03-05] MEDS: MELATONIN 5 MG TABLET PO PRN (22:45)
[2025-03-05] MEDS: ONDANSETRON HCL INJ 2MG/ML 2ML 2 MG/ML VIAL IV PRN (22:45)
[2025-03-06] VITALS (11 sets, daily range): BP systolic 90–133; BP diastolic 45–74; PULSE 57–87; RESP 18–20; TEMP 97.4–98.4; O2SAT 92–100
[2025-03-06 06:02] LABS: BASOPHILS % 0.8 % (0.0-1.0); EOSINOPHILS # (AUTO) 0.1 (0.0-0.4); EOSINOPHILS % 8.1 % (0.0-6.0); HEMATOCRIT 33.3 % (34.2-44.1); HEMOGLOBIN 10.8 g/dL (12.0-16.0); LYMPHOCYTES # (AUTO) 0.1 (1.0-3.2); LYMPHOCYTES % 4.8 % (18.0-39.1); MEAN CORPUSCULAR HEMOGLOBIN 27.2 pg (28-32); MEAN CORPUSCULAR HGB CONC 32.4 g/dL (31-35); MEAN CORPUSCULAR VOLUME 83.9 fL (81-99); MONOCYTES # (AUTO) 0.4 (0.2-0.8); MONOCYTES % 30.6 % (4.4-11.3); NEUTROPHILS # (AUTO) 0.7 (2.1-6.9); NEUTROPHILS % 54.9 % (38.7-80.0); PLATELET COUNT 142 x10e3/uL (140-360); RED BLOOD COUNT 3.97 x10e6/uL (3.6-5.1); RED CELL DISTRIBUTION WIDTH 16.4 % (11.7-14.4)
[2025-03-06 06:03] LABS: WHITE BLOOD COUNT 1.24 x10e3/uL (4.8-10.8)
[2025-03-06 06:30] LABS: ANION GAP 15.2 mmol/L (8-16); CALCIUM 8.7 mg/dL (8.4-10.2); CREATININE, SERUM 0.84 mg/dL (0.57-1.11)
[2025-03-06 06:31] LABS: POTASSIUM 3.2 mmol/L (3.5-5.1)
[2025-03-06 09:31] LABS: BAND NEUTROPHILS % (MANUAL) 4 %; EOSINOPHILS % (MANUAL) 9 % (0-7); LYMPHOCYTES % (MANUAL) 21 % (19-48); METAMYELOCYTES % (MANUAL) 6 % (0-0); MONOCYTES % (MANUAL) 9 % (3.4-9.0); NEUTROPHILS % (MANUAL) 51 % (40-74); PLATELET ESTIMATE SLIGHTLY DECREASED; PLATELET MORPHOLOGY COMMENT NORMAL; RBC MORPHOLOGY COMMENT NORMAL
[2025-03-06] MEDS: BENZONATATE 100 MG CAP PO PRN (13:02)
[2025-03-06 15:02] LABS: FERRITIN 1110.65 ng/mL (4.63-204.00)
[2025-03-06] MEDS: FILGRASTIM-AAFI 480 MCG/0.8 ML SYRINGE SQ ONE (15:56)
[2025-03-07] VITALS (10 sets, daily range): BP systolic 119–155; BP diastolic 55–74; PULSE 66–83; RESP 18–20; TEMP 97–98.2; O2SAT 92–100
[2025-03-07] MEDS: IRON SUCROSE 100 MG in SODIUM CHLORIDE 0.9% 100 ML IV SCH (08:22)
[2025-03-07] MEDS ORDERED: IRON SUCROSE 100 MG in SODIUM CHLORIDE 0.9% 100 ML IV SCH (09:00)
[2025-03-07 13:26] LABS: CDIFF AG QUIK CHEK NEGATIVE (NEGATIVE); WBC,FECAL (FECAL LACTOFERRIN) POSITIVE (NEGATIVE)
[2025-03-07 13:27] LABS: CDIFF TOX QUIK CHEK NEGATIVE (NEGATIVE)
[2025-03-07 13:38] LABS: ABG HCO3 26 mmol/L (22-26); ABG PCO2 37 mmHg (35-45); ABG PH 7.46 (7.35-7.45); ABG PO2 93 mmHg (80-105); ABG TCO2 27
[2025-03-07 14:31] LABS: BASOPHILS % 0.5 % (0.0-1.0); EOSINOPHILS # (AUTO) 0.2 (0.0-0.4); EOSINOPHILS % 4.9 % (0.0-6.0); HEMATOCRIT 34.8 % (34.2-44.1); HEMOGLOBIN 11.2 g/dL (12.0-16.0); LYMPHOCYTES # (AUTO) 0.1 (1.0-3.2); LYMPHOCYTES % 3.3 % (18.0-39.1); MEAN CORPUSCULAR HGB CONC 32.2 g/dL (31-35); MEAN CORPUSCULAR VOLUME 83.9 fL (81-99); MONOCYTES # (AUTO) 0.6 (0.2-0.8); NEUTROPHILS # (AUTO) 3.2 (2.1-6.9); NEUTROPHILS % 74.4 % (38.7-80.0); PLATELET COUNT 173 x10e3/uL (140-360); RED BLOOD COUNT 4.15 x10e6/uL (3.6-5.1); RED CELL DISTRIBUTION WIDTH 16.6 % (11.7-14.4)
[2025-03-07 14:43] LABS: WHITE BLOOD COUNT 4.28 x10e3/uL (4.8-10.8)
[2025-03-08] VITALS (11 sets, daily range): BP systolic 121–158; BP diastolic 56–99; PULSE 60–74; RESP 18–20; TEMP 97.7–98.6; O2SAT 95–100
[2025-03-08 06:10] LABS: EOSINOPHILS # (AUTO) 0.3 (0.0-0.4); EOSINOPHILS % 7.4 % (0.0-6.0); HEMATOCRIT 32.8 % (34.2-44.1); HEMOGLOBIN 10.7 g/dL (12.0-16.0); LYMPHOCYTES # (AUTO) 0.1 (1.0-3.2); LYMPHOCYTES % 2.8 % (18.0-39.1); MEAN CORPUSCULAR HEMOGLOBIN 27.2 pg (28-32); MEAN CORPUSCULAR HGB CONC 32.6 g/dL (31-35); MEAN CORPUSCULAR VOLUME 83.2 fL (81-99); MONOCYTES # (AUTO) 0.5 (0.2-0.8); MONOCYTES % 12.4 % (4.4-11.3); NEUTROPHILS # (AUTO) 2.7 (2.1-6.9); PLATELET COUNT 184 x10e3/uL (140-360); RED BLOOD COUNT 3.94 x10e6/uL (3.6-5.1); RED CELL DISTRIBUTION WIDTH 16.6 % (11.7-14.4); WHITE BLOOD COUNT 3.94 x10e3/uL (4.8-10.8)
[2025-03-08] MEDS: SODIUM CHLORIDE 0.9% 250ML 250 ML ONE (07:25)
[2025-03-08 15:10] LABS: BAND NEUTROPHILS % (MANUAL) 2 %; BASOPHILS % (MANUAL) 1 % (0-1.5); EOSINOPHILS % (MANUAL) 3 % (0-7); LYMPHOCYTES % (MANUAL) 3 % (19-48); METAMYELOCYTES % (MANUAL) 1 % (0-0); MONOCYTES % (MANUAL) 6 % (3.4-9.0); NEUTROPHILS % (MANUAL) 83 % (40-74); NUCLEATED RED BLOOD CELLS 1; PLATELET ESTIMATE ADEQUATE; PLATELET MORPHOLOGY COMMENT NORMAL; REACTIVE LYMPHOCYTES 1
[2025-03-08] MEDS: BENZOCAINE 0.18 OZ ORAL GEL TOP PRN (17:26)
[2025-03-08] MEDS: INSULIN GLARGINE 100 UNITS/ML VIAL SQ SCH (21:44)
[2025-03-09] VITALS (9 sets, daily range): BP systolic 153–167; BP diastolic 69–76; PULSE 61–98; RESP 18–20; TEMP 97.8–98.3; O2SAT 95–97
[2025-03-09 06:13] LABS: BASOPHILS # (AUTO) 0.1 (0.0-0.1); BASOPHILS % 1.5 % (0.0-1.0); EOSINOPHILS # (AUTO) 0.2 (0.0-0.4); EOSINOPHILS % 7.1 % (0.0-6.0); HEMATOCRIT 33.6 % (34.2-44.1); HEMOGLOBIN 10.7 g/dL (12.0-16.0); LYMPHOCYTES # (AUTO) 0.2 (1.0-3.2); MEAN CORPUSCULAR HGB CONC 31.8 g/dL (31-35); MEAN CORPUSCULAR VOLUME 84.8 fL (81-99); MONOCYTES # (AUTO) 0.5 (0.2-0.8); MONOCYTES % 14.2 % (4.4-11.3); NEUTROPHILS # (AUTO) 2.1 (2.1-6.9); PLATELET COUNT 195 x10e3/uL (140-360); RED BLOOD COUNT 3.96 x10e6/uL (3.6-5.1); RED CELL DISTRIBUTION WIDTH 16.8 % (11.7-14.4); WHITE BLOOD COUNT 3.39 x10e3/uL (4.8-10.8)
[2025-03-09 06:36] LABS: CALCIUM 8.4 mg/dL (8.4-10.2); CREATININE, SERUM 0.64 mg/dL (0.57-1.11)
[2025-03-09 11:08] LABS: BAND NEUTROPHILS % (MANUAL) 5 %; EOSINOPHILS % (MANUAL) 12 % (0-7); LYMPHOCYTES % (MANUAL) 6 % (19-48); MONOCYTES % (MANUAL) 16 % (3.4-9.0); MYELOCYTES % (MANUAL) 1 % (0-0); NEUTROPHILS % (MANUAL) 60 % (40-74); PLATELET ESTIMATE ADEQUATE; PLATELET MORPHOLOGY COMMENT NORMAL; RBC MORPHOLOGY COMMENT NORMAL
[2025-03-09] MEDS ORDERED: PANTOPRAZOLE SO40 MG PO (14:31)
[2025-03-09] MEDS ORDERED: METRONIDAZOLE500 MG PO (14:31)
[2025-03-09] MEDS ORDERED: ASPIRIN EC81 MG PO (14:31)
[2025-03-09] MEDS ORDERED: LANTUS 3ML100 UNITS/ SQ (14:41)
[2025-03-09] MEDS ORDERED: NOVOLOG100 UNIT/1 SC (14:41)
[2025-03-09] MEDS ORDERED: DOXYCYCLINE HY100 MG PO (14:46)
[2025-03-09] MEDS: POTASSIUM CHLORIDE 20 MEQ TAB CR PO STA (15:12)
[2025-03-10 06:16] LABS: HEPATITIS C ANTIBODY Non Reactive
[2025-03-10 06:17] LABS: HEPATITIS A ANTIBODY IGM (P) Negative; HEPATITIS B CORE IGM (P) Negative; HEPATITIS B SURFACE AG (P) Negative
[2025-03-10 06:41] LABS: ABG HCO3 27 mmol/L (22-26); ABG PCO2 41 mmHg (35-45); ABG PH 7.42 (7.35-7.45); ABG PO2 78 mmHg (80-105); ABG TCO2 28
[2025-03-10 06:41] LABS: ABG HCO3 26 mmol/L (22-26); ABG PCO2 37 mmHg (35-45); ABG PH 7.46 (7.35-7.45); ABG PO2 93 mmHg (80-105); ABG TCO2 27
== END 2025-03-09 16:20 | disposition home or self-care (01) | DRG 682 ==
LOC: FSED 08:16 → ERHOLD 10:17 → MED/SURG3 13:27
PROVIDERS: ADMIT Internal Medicine; ATTEND Internal Medicine
PROC: 4A133R1 Monitoring of Arterial Saturation, Peripheral, Percutaneous Approach (ICD-10-PCS; principal; 2025-03-04)
DX: N17.9 Acute kidney failure, unspecified (principal); G93.41 Metabolic encephalopathy; J96.01 Acute respiratory failure with hypoxia; J18.9 Pneumonia, unspecified organism; C82.93 Follicular lymphoma, unspecified, intra-abdominal lymph nodes; I13.0 Hypertensive heart and chronic kidney disease with heart failure and stage 1 through stage 4 chronic kidney disease, or unspecified chronic kidney disease; I50.32 Chronic diastolic (congestive) heart failure; E66.01 Morbid (severe) obesity due to excess calories; Z68.41 Body mass index [BMI] 40.0-44.9, adult; D70.9 Neutropenia, unspecified; Z99.81 Dependence on supplemental oxygen; E11.65 Type 2 diabetes mellitus with hyperglycemia; E11.22 Type 2 diabetes mellitus with diabetic chronic kidney disease; E86.0 Dehydration; N18.9 Chronic kidney disease, unspecified; R53.81 Other malaise; J44.9 Chronic obstructive pulmonary disease, unspecified; F41.9 Anxiety disorder, unspecified; E78.5 Hyperlipidemia, unspecified; G43.909 Migraine, unspecified, not intractable, without status migrainosus; G47.33 Obstructive sleep apnea (adult) (pediatric); F32.A Depression, unspecified; J01.90 Acute sinusitis, unspecified; D63.0 Anemia in neoplastic disease; K52.9 Noninfective gastroenteritis and colitis, unspecified; Z59.6 Low income; Z79.84 Long term (current) use of oral hypoglycemic drugs; Z79.4 Long term (current) use of insulin; Z79.51 Long term (current) use of inhaled steroids; Z88.0 Allergy status to penicillin; Z88.8 Allergy status to other drugs, medicaments and biological substances; Z87.891 Personal history of nicotine dependence
CPT/HCPCS: 36415; 36600; 70450; 71045; 71260; 74177; 80048; 80053; 80061; 81003; 82140; 82550; 82607; 82728; 82746; 82805; 82948; 83036; 83540; 83615; 83630; 83690; 83735; 83880; 83993; 84439; 84443; 84466; 84484; 85025; 85045; 87045; 87177; 87324; 87449; 93005; 93306; 94640; 94660; 94760; 94799; 96372; 99252; 99283; J0696; J1650; J1756; J1815; J2405; J2470; J3030; J7030; J7040; J7050; Q9967